=== PATIENT | male | born 1980 | race Caucasian/White ===

== ENCOUNTER → 2019-03-02 | Outpatient (CLI) | payer BC ==
[~2019-03-02] MED LIST: AMOX-559 PO; AZEL23SP NS; CEF300 PO; DOXY-179 PO; IPRA15SP7 NS
== END ==
LOC: LAB 10:07
PROVIDERS: ATTEND Otolaryngology
DX: J32.0 Chronic maxillary sinusitis (principal)
CPT/HCPCS: 87071; 87077; 87186